=== PATIENT | female | born 1995 | race Native Hawaiian/Other Pacific Islander ===

== ENCOUNTER 2020-11-21 13:59 | Outpatient (REF) | payer OTHER, SELFPAY | END 2020-11-21 14:00 | disposition home or self-care (01) | LOC: HO.LNP 13:59 | PROVIDERS: Visit Provider Hospitalist | DX: Z20.822 Contact with and (suspected) exposure to COVID-19 (principal); B34.9 Viral infection, unspecified | CPT/HCPCS: U0003; U0005 ==

== ENCOUNTER 2024-03-26 23:08 | Emergency (ER) | payer OTHER, SELFPAY | END 2024-03-26 23:55 | disposition left against medical advice (07) | PROVIDERS: Emergency Provider Emergency Medicine | DX: R42 Dizziness and giddiness (principal); Z53.21 Procedure and treatment not carried out due to patient leaving prior to being seen by health care provider ==